=== PATIENT | male | born 1960 | race Native Hawaiian/Other Pacific Islander ===

== ENCOUNTER 2016-09-27 15:52 | Outpatient (CLI) | payer OTHER ==
[~2016-09-27 15:52] MED LIST: ASA LO-DOSE81 MG PO; DULO60CA2 PO; FISH OIL PO; HYDR10TA47A PO; LISI10TA11 PO; MULT VITAMI1 PO; PANT40TA PO; REQUIP1 MG PO; ROSU10TA PO; TIZA4TAB5 PO; ZINC50 M1 PO
[2016-09-27 16:17] LABS: PLATELET COUNT 241 K/uL (142-355)
[2016-09-27 17:06] LABS: SODIUM 136 mmol/L (136-145)
== END 2016-09-27 19:12 | disposition home or self-care (01) ==
LOC: LAB 15:52
PROVIDERS: Nurse Practitioner Family
DX: Z79.899 Other long term (current) drug therapy (principal); E78.00 Pure hypercholesterolemia, unspecified; I10 Essential (primary) hypertension; E11.9 Type 2 diabetes mellitus without complications; Z51.81 Encounter for therapeutic drug level monitoring
CPT/HCPCS: 36415; 80053; 80061; 83036; 84436; 84443; 85027